=== PATIENT | male | born 1945 | race African-American/Black ===

== ENCOUNTER 2016-11-02 05:16 | Inpatient (IN) | payer OTHER, MEDICARE ==
[~2016-11-02] VITALS: Ht 185.4 cm; Wt 152.2 kg
[2016-11-02] VITALS (27 sets, daily range): BP systolic 85–173; BP diastolic 43–85; PULSE 74–98; RESP 17–22; Ht 185.4 cm; Wt 152.2 kg
[2016-11-02] MEDS ORDERED: LISINOPRIL (06:33)
[2016-11-02] MEDS ORDERED: MIDAZOLAM 1 MG/ML 2 ML INJ ONE (06:37)
[2016-11-02] MEDS ORDERED: LISI20TA11 PO (06:37)
[2016-11-02] MEDS ORDERED: AMLODIPINE (06:37)
[2016-11-02] MEDS ORDERED: ROPIVACAINE 0.5 % 30 ML VIAL ONE ×2 (06:38→06:48)
[2016-11-02 06:46] LABS: BASOPHILS % 0.5 % (0.0-2.0); EOSINOPHILS # 0.3 10^3/ul (0.0-0.5); EOSINOPHILS % 3.6 % (0.0-7.0); HEMATOCRIT 37.4 % (42.0-52.0); HEMOGLOBIN 12.4 g/dl (14.0-18.0); LYMPHOCYTES # 3.4 10^3/ul (0.8-2.9); LYMPHOCYTES % 40.2 % (15.0-51.0); MEAN CORPUSCULAR HEMOGLOBIN 27.9 pg (29.0-33.0); MEAN CORPUSCULAR HGB CONC 33.1 g/dl (32.0-37.0); MEAN CORPUSCULAR VOLUME 84.3 fl (82.0-101.0); MEAN PLATELET VOLUME 7.8 fl (7.4-10.4); MONOCYTE # 0.7 10^3/ul (0.3-0.9); MONOCYTES % 7.9 % (0.0-11.0); NEUTROPHILS % 47.8 % (39.0-77.0); PLATELET COUNT 299 10^3/UL (140-440); RED BLOOD COUNT 4.43 10^6/ul (4.70-6.10); RED CELL DISTRIBUTION WIDTH 15.1 % (11.5-14.5); UNCORRECTED WBC 8.5 10^3/ul (4.8-10.8); WHITE BLOOD COUNT 8.5 10^3/ul (4.8-10.8)
[2016-11-02 06:48] LABS: ALBUMIN 4.1 g/dl (3.3-4.9); INR 1.03; PROTIME 13.5 Sec (12.2-14.2); PT RATIO 1.1
[2016-11-02 06:49] LABS: PARTIAL THROMBOPLASTIN TIME 28.2 Sec (25.0-35.0)
[2016-11-02] MEDS ORDERED: POVIDONE IODINE 10% 28.4 GM OINT ONE (06:49)
[2016-11-02] MEDS ORDERED: POLYMYXIN/BACITRACIN 1L IRRIG ONE (06:49)
[2016-11-02 06:51] LABS: ALBUMIN/GLOBULIN RATIO 1.17; BILIRUBIN,INDIRECT 0.1 mg/dl (0-1.1); BILIRUBIN,TOTAL 0.1 mg/dl (0.2-1.3); CALCIUM 9.8 mg/dl (8.4-10.2); CREATININE 1.28 mg/dl (0.61-1.24); POTASSIUM 4.7 mmol/L (3.5-5.1); TOTAL PROTEIN 7.6 g/dl (6.1-8.1)
[2016-11-02 06:52] LABS: CONDITION 1; LH ANALYZER COMMENTS 1
[2016-11-02] MEDS ORDERED: CEFAZOLIN 1 GM INJ ONE ×2 (07:00→10:27)
[2016-11-02] MEDS ORDERED: PROPOFOL 200 MG INJ ONE (07:00)
[2016-11-02] MEDS ORDERED: FENTAnyl 50 MCG/ML VIAL ONE ×2 (07:05→08:49)
[2016-11-02] MEDS ORDERED: PHENYLephrine (100 MCG/ML) 5ML SYG ONE (07:32)
[2016-11-02] MEDS ORDERED: HYDROmorphONE (0.2 MG/ML) 10ML SYG IV PRN ×3 (08:30)
[2016-11-02] MEDS ORDERED: MEPERIDINE 25 MG INJ IV PRN (08:30)
[2016-11-02] MEDS ORDERED: DIPHENHYDRAMINE 50 MG INJ IV PRN (08:30)
[2016-11-02] MEDS ORDERED: ONDANSETRON 4 MG INJ IV PRN ×2 (08:30→12:00)
[2016-11-02] MEDS ORDERED: FENTAnyl 50 MCG/ML VIAL IV PRN ×2 (08:30)
[2016-11-02] MEDS ORDERED: METOCLOPRAMIDE 10 MG INJ IV PRN (08:30)
[2016-11-02] MEDS ORDERED: LABETALOL HCL 20MG INJ ONE (09:40)
[2016-11-02] MEDS ORDERED: LIDOCAINE 2% (SDV) 5 ML INJ ONE (10:27)
[2016-11-02] MEDS ORDERED: SUCCINYLCHOLINE CHLORIDE 100 MG/5 ML SYG IV ONE (10:27)
[2016-11-02] MEDS ORDERED: ROCURONIUM 50 MG INJ ONE (10:27)
[2016-11-02] MEDS ORDERED: PROPOFOL 60 ML ONE (10:27)
[2016-11-02] MEDS ORDERED: NEOSTIGMINE 3 MG/3 ML SYRINGE ONE (10:59)
[2016-11-02] MEDS ORDERED: GLYCOPYRROLATE 1 MG INJ ONE (10:59)
[2016-11-02] MEDS ORDERED: OXYCODONE/ACETAMINOPHEN (5/325) TAB PO PRN (12:00)
[2016-11-02] MEDS ORDERED: BISACODYL 10 MG SUPP PR PRN (12:00)
[2016-11-02] MEDS ORDERED: CEFAZOLIN 1 GM INJ IV SCH (12:00)
[2016-11-02] MEDS ORDERED: HYDROmorphONE 0.2 MG/ML PCA IV SCH (12:00)
--- NOTE | 2016-11-02 12:07 | RADRPT ---
PROCEDURE: Intraoperative imaging of the left ankle with fluoroscopy. CLINICAL INDICATION: Left ankle pain. Intraoperative. TECHNIQUE: 3 images of the left ankle were obtained in the operating room with an image intensifie r. No radiologist was in attendance. 0.4 minutes of fluoroscopy time was used. COMPARISON: No prior study is available for comparison. FINDINGS: Images demonstrate fusion with multiple screws. IMPRESSION: 1. Intraoperative imaging of the left ankle. RPTAT: QQ .Vladislav Avalos MD, MD Date Time Electronically viewed and signed by .Vladislav Avalos MD, MD on 11/02/2016 12:06 .R/
[2016-11-02] MEDS ORDERED: morphine 1 MG/ML 30 ML (PCA) ONE (12:14)
[2016-11-02] MEDS: morphine 1 MG/ML 30 ML (PCA) IV SCH ×2 (12:21→17:51)
[2016-11-02] MEDS: SOD CHLORIDE 0.9% 1,000 ML IV SCH ×2 (17:11→21:51)
[2016-11-02] MEDS: CEFAZOLIN 2 GM/50 ML (PMX) 50 ML IVPB SCH (17:17)
[2016-11-02] MEDS ORDERED: CEFAZOLIN 1 GM/50 ML (PMX) 50 ML IVPB SCH (18:00)
[2016-11-02] MEDS: morphine 10 MG INJ IV PRN ×2 (19:47→23:18)
[2016-11-02] MEDS: OXYCODONE/ACETAMINOPHEN (5/325) TAB PO PRN (21:00)
[2016-11-02] MEDS: SENNA/DOCUSATE NA (8.6MG/50MG) TAB PO SCH (21:00)
--- NOTE | 2016-11-02 21:02 | CONS ---
DATE OF ADMISSION: 11/02/2016 DATE OF CONSULTATION: Thank you, Dr. Hartman, for asking me to participate in the medical management of this patient. REASON FOR CONSULTATION: To manage the patient's hypertension and diabetes mellitus. HISTORY OF PRESENT ILLNESS: This 70-year-old man is now postop a left ankle fusion by Dr. Hartman. The patient is awake and alert. Apparently, the patient has had left ankle pain for many years sin e he was in the [employer]. He did undergo a surgery on the left ankle at the [facility] the details of that are not well known. The patient, because of continued pain, decided to under go a left ankle fusion, which was done today by Dr. Hartman. The patient said that he did take his a ntihypertensive medication this morning. He denies any nausea, vomiting, chest pain, shortness of b reath. CURRENT MEDICATIONS: Includes the followin. Amlodipine. 2. Lisinopril. PAST MEDICAL HISTORY: Remarkable for hypertension, type 2 diabetes mellitus, which is diet controll ed. Arthritis. PAST SURGICAL HISTORY: Includes the following left ankle surgery, right total knee replacement. SOCIAL HISTORY: The patient is single. He does not smoke. He drinks socially. PHYSICAL EXAMINATION: GENERAL: At this time reveals a well-developed, obese man in no apparent distress. VITAL SIGNS: Pulse of 76, respirations 17, blood pressure 106/56, O2 saturation 99% on 3 L nasal ca nnula. HEENT: Head normocephalic. EYES: Extraocular muscles intact. NOSE AND MOUTH: Normal. NECK: Supple. No neck vein distention. LUNGS: Clear to auscultation. HEART: Regular rhythm. No murmurs, gallops, or rubs. ABDOMEN: Soft, nontender. No masses or megaly. EXTREMITIES: No peripheral edema on the right leg. He does have a large cast on the left leg. IMPRESSION: This patient is now postop a left ankle fusion. He is doing well. His blood pressure is under good control. He did take his routine medications this morning. PLAN: 1. Resume routine medications. 2. I will hold his antihypertensive medication for now in view of his blood pressure on the low nor mal range. 3. I agree with Xarelto 10 mg a day to be started tomorrow for DVT prophylaxis. 4. Check labs in the morning. 5. I will follow the patient along with you. Dictated By: ALEX RUFF MD ND/NTS Conf#: [id number] DID#: [id number] CC: JAI HARTMAN MD;*EndCC*
--- NOTE | 2016-11-02 22:26 | OPR ---
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 POSTOPERATIVE DIAGNOSIS: Severe degenerative joint disease of the left ankle. PROCEDURE: 1. Arthroscopy, left ankle with soft-tissue distraction. 2. Extensive debridement, removal of all osteophytes, loose bodies and arthritic cartilage. 3. Insertion of Ignite and blood to the fusion site. 4. Arthrodesis of the ankle with three 7.3 AO cannulated screws. 5. Use of fluoroscopy to verify position and alignment of the guide pins and screws. 6. Short-leg cast. Extremely complex and difficult procedure because the patient's anatomy was quite altered, the ankle was quite tight and difficult to access anteriorly and posteriorly, and the patient was extremely large with a BMI of almost 45. All this made the procedure extremely difficult technically, necessitating an additional 60 minutes of operative time (22). SURGEON: Jai Pedersen MD PILLOW CLEANER: Cash Jennings ANESTHESIA: General with popliteal block. TOURNIQUET TIME: 165 minutes. DESCRIPTION OF PROCEDURE: The patient taken to the operating room, placed in supine position. Satisfactory popliteal block was given. Satisfactory general anesthesia was administered. Two grams Ancef given intravenously. The left thigh secured in the thigh flannery. Arms were carefully padded. The left leg was prepped and draped in usual manner. Superficial peroneal nerve was marked out. Soft-tissue distraction was applied. Standard anteromedial, anterolateral and posterolateral portals were made. It was very difficult to access the ankle initially because the ankle was very tight and fibrosed, particularly the posterior portal was quite difficult to get into. We had to shave out bone spurs and osteophytes and soft tissue to finally get access to create a posterolateral portal. The ankle had grade III to IV chondromalacia throughout the ankle, was quite sclerotic on the lateral talar dome and distal tibia. Extensive synovitis was noted with large osteophytes anteriorly. Shaver was inserted. The medial gutter was debrided. Soft tissue was peeled off the distal tibia. Lateral gutter was debrided. Anterior gutter was debrided as well as the posterior gutter. Bur was used to remove the osteophytes from the syndesmosis to the medial malleolus. Using curved and straight curettes and a shaver, all articular cartilage was removed from the talus. A bur was used to remove approximately 1 mm of bone to good bleeding surfaces, particularly where it was sclerotic. Multiple "spot welds" were made with the bur to facilitate bleeding on the talus. In a similar manner, the distal tibia was prepared with the curettes and the shaver. All cartilage was removed. Bur was used to remove the bone, and the spot welds were made. Multiple drill holes were made in the tibia and the talus, particularly in the areas of sclerotic bone, to facilitate bleeding as well. A 70-degree scope was used to debride the medial and lateral gutters of all cartilage, and then a bur was used to remove bone along the talus and the medial and lateral malleolus, and then multiple spot welds were made. Same thing was done through the posterior portal so that we accessed the entire joint. When we were done, we had a very good excellent bleeding surface. The Micro Vector guide was inserted. We marked along the previous incisions medially and laterally where we wanted to go. Incisions were then made medially and laterally. Dissection carried down to subcutaneous tissue medially. We elevated up what we thought was the saphenous neurovascular bundle. Guidepin was inserted from the 7.3 AO cannulated screw set in the appropriate angulation on the tibia. Similarly we exposed the fibula, lifted posteriorly the peroneal tendons, placed the guide in the fibular groove and inserted the guide pin. Pins were checked in AP and lateral planes. Once they were exactly where we wanted, Ignite was inserted after being mixed with the patient's blood sterilely. Wounds were closed with 3-0 black nylon to prevent it from leaking out. Foot was then removed out of distraction device, placed in 5 degrees of valgus, neutral dorsiflexion and plantar flexion. The medial guide pin was advanced. It was partially drilled, measured, and then a 7.3 AO cannulated screw was inserted. Excellent fixation was obtained. The same thing was done laterally, partially drilling over the guide pin, measuring the screw length and inserting a screw. Again excellent fixation was obtained. Because the patient was so large, a third pin was placed more superiorly through the medial malleolus into the talus more posteriorly. When we were done , guide pins were removed. The screws were in excellent position in AP and lateral final radiographs, and there was no violation of the subtalar joint on the final fluoroscopic views. Tourniquet was released, bleeders were coagulated , wounds irrigated with antibiotic solution. The deep tissues were closed with 2-0 and 3-0 undyed Vicryl. The skin was closed with 4-0 black nylon. Saphenous nerve block done with 0.5% ropivacaine. Compression dressing was applied as well as short-leg cast in neutral position. Cast was split in recovery room. At end of procedure, sponge, needle count was correct. The patient tolerated procedure well. TRAFFIC CONTROLLER CABLE ORTHOPEDIC SURGEON: During the procedure, an buyer assistant orthopedic surgeon was used at my request. The buyer assistant orthopedic surgeon helped with distraction of the ankle, manipulation of the ankle and the arthroscope, and most importantly, the buyer assistant inserted the guide pins and screws while I held the ankle reduced in appropriate position. Without a skilled orthopedic surgeon assisting me, this could not have been done, therefore should be compensated appropriately. Dictated By: JAI ELIZALDE/BALTAZAR Conf#: [id number] DID#: [id number] GENO
[2016-11-03] MEDS: DIPHENHYDRAMINE 25 MG CAP PO PRN ×2 (00:11→08:03)
[2016-11-03] MEDS: OXYCODONE/ACETAMINOPHEN (5/325) TAB PO PRN ×5 (01:41→20:12)
[2016-11-03] MEDS: CEFAZOLIN 2 GM/50 ML (PMX) 50 ML IVPB SCH ×3 (02:09→18:20)
[2016-11-03] MEDS: morphine 10 MG INJ IV PRN ×4 (04:56→16:56)
[2016-11-03 06:34] LABS: ALBUMIN 4.4 g/dl (3.3-4.9)
[2016-11-03 06:35] LABS: BASOPHILS % 0.4 % (0.0-2.0); EOSINOPHILS # 0.2 10^3/ul (0.0-0.5); EOSINOPHILS % 1.7 % (0.0-7.0); HEMATOCRIT 39.6 % (42.0-52.0); HEMOGLOBIN 13.1 g/dl (14.0-18.0); LYMPHOCYTES % 26.6 % (15.0-51.0); MEAN CORPUSCULAR HEMOGLOBIN 27.9 pg (29.0-33.0); MEAN CORPUSCULAR VOLUME 84.7 fl (82.0-101.0); MEAN PLATELET VOLUME 8.5 fl (7.4-10.4); MONOCYTE # 0.7 10^3/ul (0.3-0.9); MONOCYTES % 6.2 % (0.0-11.0); NEUTROPHIL # 7.3 10^3/ul (1.6-7.5); NEUTROPHILS % 65.1 % (39.0-77.0); PLATELET COUNT 250 10^3/UL (140-440); POTASSIUM 4.9 mmol/L (3.5-5.1); RED BLOOD COUNT 4.68 10^6/ul (4.70-6.10); RED CELL DISTRIBUTION WIDTH 14.7 % (11.5-14.5); UNCORRECTED WBC 11.3 10^3/ul (4.8-10.8); WHITE BLOOD COUNT 11.3 10^3/ul (4.8-10.8)
[2016-11-03 06:37] LABS: ALBUMIN/GLOBULIN RATIO 1.12; BILIRUBIN,INDIRECT 0.3 mg/dl (0-1.1); BILIRUBIN,TOTAL 0.3 mg/dl (0.2-1.3); CREATININE 1.52 mg/dl (0.61-1.24); TOTAL PROTEIN 8.3 g/dl (6.1-8.1)
[2016-11-03 06:38] LABS: CALCIUM 9.9 mg/dl (8.4-10.2)
[2016-11-03] MEDS: SOD CHLORIDE 0.9% 1,000 ML IV SCH (06:44)
[2016-11-03 06:47] LABS: CONDITION 1; LH ANALYZER COMMENTS 1
--- NOTE | 2016-11-03 07:17 | PN ---
Date/Time of Note Date/Time of Note DATE: 11/03/16 TIME: 07:13 Assessment/Plan VTE Prophylaxis VTE Prophylaxis Intervention: anti-embolic stocking, other Lines/Catheters IV Catheter Type (from Nrs): Peripheral IV Assessment/Plan Chief Complaint/Hosp Course #1 POD1 s/p Left arthroscopic ankle fusion #2 HTN #3 DM2 Diet Controlled Problems: Assessment/Plan Doing well. -Social work to see for SNF placement - PT to mobilize, NWB LLE, will be complicated by habitus and other joint problems - NWB LLE, - Elevate leg at all times. - Will determine when to change soiled cast - Xarelto for DVT prophylaxis - Appreciate excellent care from our medicine colleagues Subjective 24 Hr Interval Summary Free Text/Dictation Pt has done very well overnight. He is POD 1 from arthroscopic left ankle fusion. Denies problems overnight. He is in good spirits. Notes he has bled through his cast in one location. No CP,SOB. Exam/Review of Systems Vital Signs Vitals Vital Signs Date Time Temp Pulse Resp B/P Pulse Ox O2 Delivery O2 Flow Rate FiO2 11/02/16 20:10 94 2.0 11/02/16 20:00 98.6 86 18 137/69 11/02/16 15:15 Room Air Intake and Output 11/02/16 11/02/16 11/03/16 15:00 23:00 07:00 Intake Total 1200 ml 1250 ml 950 ml Output Total 50 ml 1100 ml 1000 ml Balance 1150 ml 150 ml -50 ml Exam Left foot warm and well perfused with normal capillary refill. Left cast has bleeding strike through present. Patient is in good spirits, endorses normal dorsal and plantar sensation and is moving toes easily to command. Contralateral leg is nontender. Constitutional: alert, oriented Extremities: normal pulses Results Result Diagram: 11/03/163 11/03/16 0443 Results 24 hrs Laboratory Tests Test 11/03/16 04:43 Alanine Aminotransferase (ALT/SGPT) 55 Albumin 4.4 Albumin/Globulin Ratio 1.12 Alkaline Phosphatase 63 Anion Gap 20 H Aspartate Amino Transf (AST/SGOT) 45 Basophils # 0.0 Basophils % 0.4 Blood Morphology Comment Blood Urea Nitrogen 18 Calcium Level 9.9 Carbon Dioxide Level 27 Chloride Level 103 Creatinine 1.52 H Direct Bilirubin 0.00 Eosinophils # 0.2 Eosinophils % 1.7 Globulin 3.90 H Glucose Level 134 Hematocrit 39.6 L Hemoglobin 13.1 L Indirect Bilirubin 0.3 Lymphocytes # 3.0 H Lymphocytes % 26.6 Mean Corpuscular Hemoglobin 27.9 L Mean Corpuscular Hemoglobin Concent 33.0 Mean Corpuscular Volume 84.7 Mean Platelet Volume 8.5 Monocytes # 0.7 Monocytes % 6.2 Neutrophils # 7.3 Neutrophils % 65.1 Nucleated Red Blood Cells # 0.0 Nucleated Red Blood Cells % 0.0 Platelet Count 250 Potassium Level 4.9 Red Blood Count 4.68 L Red Cell Distribution Width 14.7 H Sodium Level 145 H Total Bilirubin 0.3 Total Protein 8.3 H White Blood Count 11.3 #H Medications Medications Current Medications Senna/Docusate Sodium (Senokot-S) 1 tab BID PO Last administered on 11/02/16 21 :00; Admin Dose 1 TAB; Start 11/02/16 at 21:00 Magnesium Hydroxide (Milk Of Mag) 30 ml HS PO ; Start 11/04/16 at 21:00 Bisacodyl 10 mg 10 mg DAILY PRN [place] CONSTIPATION; Start 11/02/16 at 12:00 Sodium Chloride (NS) 1,000 ml @ 100 mls/hr Q10H IV Last administered on 06:44; Admin Dose 100 MLS/HR; Start 11/02/16 at 11:51 Oxycodone/ Acetaminophen (Percocet (5/ 325)) 1 tab Q4H PRN PO PAIN; Start at 12:00 Oxycodone/ Acetaminophen (Percocet (5/ 325)) 2 tab Q4H PRN PO PAIN Last administered on 11/03/16 06:44; Admin Dose 2 TAB; Start 11/02/16 at 12:00 Morphine Sulfate (morphine) 5 mg Q4H PRN IV PAIN LEVEL 7-10 Last administered on 11/03/16 04:56; Admin Dose 5 MG; Start 11/02/16 at 12:00 Ondansetron HCl (Zofran Inj) 4 mg Q4H PRN IV NAUSEA AND/OR VOMITING; Start 11/02 at 12:00 Diphenhydramine HCl 25 mg 25 mg Q4H PRN PO ITCHING Last administered on 00:11; Admin Dose 25 MG; Start 11/02/16 at 12:00 Cefazolin Sodium/ Dextrose (Ancef 2 Gm/50 ml (Pmx)) 50 ml @ 100 mls/hr Q8H IVPB Last administered on 11/03/16 02:09; Admin Dose 100 MLS/HR; Start at 18:00; Stop 11/04/16 at 10:29 JAI HARTMAN MD Nov 03, 2016 07:17
[2016-11-03] MEDS: SENNA/DOCUSATE NA (8.6MG/50MG) TAB PO SCH ×2 (08:03→20:12)
[2016-11-03 08:44] VITALS: BP 136/72; RESP 18
--- NOTE | 2016-11-03 13:55 | CONS ---
Date/Time of Note Date/Time of Note DATE: 11/03/16 TIME: 13:48 Assessment/Plan Assessment/Plan Chief Complaint/Hosp Course 1. he is 1 day post op a L ankle fusion .He is better today , with less pain . He is working with PT . 2. HTN BP is under control 3. Renal Disease , I suspect that he has CKD . I will order U/A and urine protein /creatinine ratio . Problems: Consultation Date/Type/Reason Admit Date/Time Nov 02, 2016 at 05:16 Initial Consult Date 24 HR Interval Summary Constitutional: improved, no complaints Exam/Review of Systems Vital Signs Vitals Vital Signs Date Time Temp Pulse Resp B/P Pulse Ox O2 Delivery O2 Flow Rate FiO2 11/03/16 08:44 98.6 77 18 136/72 90 11/02/16 20:10 2.0 11/02/16 15:15 Room Air Intake and Output 11/02/16 11/02/16 11/03/16 15:00 23:00 07:00 Intake Total 1200 ml 1250 ml 950 ml Output Total 50 ml 1100 ml 1000 ml Balance 1150 ml 150 ml -50 ml Exam He is having less pain today . He is working with PT .He has a large cast on his L lower leg Constitutional: alert, oriented, well developed Psych: nl mood/affect, no complaints Respiratory: clear to auscultation, normal air movement Cardiovascular: nl pulses, regular rate and rhythm Musculoskeletal: nl extremities to inspection Results Result Diagram: 11/03/16 0443 11/03/16 0443 Results 24 hrs Laboratory Tests Test 11/03/16 04:43 Alanine Aminotransferase (ALT/SGPT) 55 Albumin 4.4 Albumin/Globulin Ratio 1.12 Alkaline Phosphatase 63 Anion Gap 20 H Aspartate Amino Transf (AST/SGOT) 45 Basophils # 0.0 Basophils % 0.4 Blood Morphology Comment Blood Urea Nitrogen 18 Calcium Level 9.9 Carbon Dioxide Level 27 Chloride Level 103 Creatinine 1.52 H Direct Bilirubin 0.00 Eosinophils # 0.2 Eosinophils % 1.7 Globulin 3.90 H Glucose Level 134 Hematocrit 39.6 L Hemoglobin 13.1 L Indirect Bilirubin 0.3 Lymphocytes # 3.0 H Lymphocytes % 26.6 Mean Corpuscular Hemoglobin 27.9 L Mean Corpuscular Hemoglobin Concent 33.0 Mean Corpuscular Volume 84.7 Mean Platelet Volume 8.5 Monocytes # 0.7 Monocytes % 6.2 Neutrophils # 7.3 Neutrophils % 65.1 Nucleated Red Blood Cells # 0.0 Nucleated Red Blood Cells % 0.0 Platelet Count 250 Potassium Level 4.9 Red Blood Count 4.68 L Red Cell Distribution Width 14.7 H Sodium Level 145 H Total Bilirubin 0.3 Total Protein 8.3 H White Blood Count 11.3 #H Medications Medications Current Medications Senna/Docusate Sodium (Senokot-S) 1 tab BID PO Last administered on 11/03/16 08:03; Admin Dose 1 TAB; Start 11/02/16 at 21:00 Magnesium Hydroxide (Milk Of Mag) 30 ml HS PO ; Start 11/04/16 at 21:00 Bisacodyl 10 mg 10 mg DAILY PRN [place] CONSTIPATION; Start 11/02/16 at 12:00 Sodium Chloride (NS) 1,000 ml @ 100 mls/hr Q10H IV Last administered on 06:44; Admin Dose 100 MLS/HR; Start 11/02/16 at 11:51 Oxycodone/ Acetaminophen (Percocet (5/ 325)) 1 tab Q4H PRN PO PAIN; Start at 12:00 Oxycodone/ Acetaminophen (Percocet (5/ 325)) 2 tab Q4H PRN PO PAIN Last administered on 11/03/16 11:15; Admin Dose 2 TAB; Start 11/02/16 at 12:00 Morphine Sulfate (morphine) 5 mg Q4H PRN IV PAIN LEVEL 7-10 Last administered on 11/03/16 13:07; Admin Dose 5 MG; Start 11/02/16 at 12:00 Ondansetron HCl (Zofran Inj) 4 mg Q4H PRN IV NAUSEA AND/OR VOMITING; Start 11/02 at 12:00 Diphenhydramine HCl 25 mg 25 mg Q4H PRN PO ITCHING Last administered on 08:03; Admin Dose 25 MG; Start 11/02/16 at 12:00 Cefazolin Sodium/ Dextrose (Ancef 2 Gm/50 ml (Pmx)) 50 ml @ 100 mls/hr Q8H IVPB Last administered on 11/03/16 11:14; Admin Dose 100 MLS/HR; Start at 18:00; Stop 11/04/16 at 10:29 Amlodipine Besylate (Norvasc) 5 mg DAILY PO ; Start 11/03/16 at 14:00 ALEX RUFF MD Nov 03, 2016 13:55
[2016-11-03] MEDS: AMLODIPINE 5 MG TAB PO SCH (14:39)
[2016-11-03] MEDS: RIVAROXABAN 10 MG TABLET PO SCH (18:20)
[2016-11-03 21:08] VITALS: BP 170/85; RESP 20
[2016-11-03 21:57] VITALS: BP 150/86; RESP 17
[2016-11-04] MEDS: CEFAZOLIN 2 GM/50 ML (PMX) 50 ML IVPB SCH (01:45)
[2016-11-04] MEDS: morphine 10 MG INJ IV PRN (01:56)
[2016-11-04 02:47] LABS: ADD UMIC NO; URINE BILIRUBIN (Dip) NEGATIVE (NEGATIVE); URINE BLOOD (Dip) NEGATIVE (NEGATIVE); URINE COLOR LT. YELLOW (YELLOW); URINE GLUCOSE (Dip) NEGATIVE (NEGATIVE); URINE KETONES (Dip) NEGATIVE (NEGATIVE); URINE LEUKOCYTE ESTERASE (Dip) NEGATIVE (NEGATIVE); URINE NITRITE (Dip) NEGATIVE (NEGATIVE); URINE TOTAL PROTEIN (Dip) NEGATIVE (NEGATIVE); URINE UROBILINOGEN (Dip) 0.2 E.U./dL (0.1-1.0)
[2016-11-04] MEDS: OXYCODONE/ACETAMINOPHEN (5/325) TAB PO PRN ×3 (02:55→19:38)
[2016-11-04 05:31] LABS: BASOPHILS % 0.3 % (0.0-2.0); EOSINOPHILS # 0.2 10^3/ul (0.0-0.5); HEMATOCRIT 35.9 % (42.0-52.0); HEMOGLOBIN 11.9 g/dl (14.0-18.0); LYMPHOCYTES # 2.2 10^3/ul (0.8-2.9); LYMPHOCYTES % 22.1 % (15.0-51.0); MEAN CORPUSCULAR HEMOGLOBIN 27.7 pg (29.0-33.0); MEAN CORPUSCULAR VOLUME 83.8 fl (82.0-101.0); MEAN PLATELET VOLUME 8.1 fl (7.4-10.4); MONOCYTE # 0.8 10^3/ul (0.3-0.9); MONOCYTES % 7.6 % (0.0-11.0); NEUTROPHIL # 6.7 10^3/ul (1.6-7.5); PLATELET COUNT 270 10^3/UL (140-440); RED BLOOD COUNT 4.29 10^6/ul (4.70-6.10); RED CELL DISTRIBUTION WIDTH 14.3 % (11.5-14.5); UNCORRECTED WBC 9.8 10^3/ul (4.8-10.8); WHITE BLOOD COUNT 9.8 10^3/ul (4.8-10.8)
[2016-11-04 05:33] LABS: ALBUMIN 3.9 g/dl (3.3-4.9); POTASSIUM 4.6 mmol/L (3.5-5.1)
[2016-11-04 05:35] LABS: CONDITION 1; CREATININE 1.22 mg/dl (0.61-1.24)
[2016-11-04 05:36] LABS: ALBUMIN/GLOBULIN RATIO 1.05; BILIRUBIN,INDIRECT 0.2 mg/dl (0-1.1); BILIRUBIN,TOTAL 0.2 mg/dl (0.2-1.3); TOTAL PROTEIN 7.6 g/dl (6.1-8.1)
--- NOTE | 2016-11-04 06:38 | PN ---
Date/Time of Note Date/Time of Note DATE: 11/04/16 TIME: 06:35 Assessment/Plan VTE Prophylaxis VTE Prophylaxis Intervention: anti-embolic stocking Lines/Catheters IV Catheter Type (from Nrs): Peripheral IV Urinary Cath still in place: No Assessment/Plan Chief Complaint/Hosp Course #1 POD2 s/p Left arthroscopic ankle fusion #2 HTN #3 DM2 Diet Controlled Problems: Assessment/Plan - Convert to Oral pain medication and abx - No need for IV - Can tx to rehab unit once accepted. - Xarelto for DVT Prophy - NWB LLE Subjective 24 Hr Interval Summary Free Text/Dictation Pt has done well overnight. No issues. His IV has infiltrated and he is a difficult stick. He's having tolerable pain in the foot currently. He otherwise feels well. Constitutional: improved, no complaints Cardiovascular: no complaints Exam/Review of Systems Vital Signs Vitals Vital Signs Date Time Temp Pulse Resp B/P Pulse Ox O2 Delivery O2 Flow Rate FiO2 11/03/16 21:57 17 150/86 11/03/16 21:08 98.3 91 97 11/03/16 20:00 Nasal Cannula 2.0 Intake and Output 11/03/16 11/03/16 11/04/16 15:00 23:00 07:00 Intake Total 3050 ml 630 ml Output Total 2200 ml 1300 ml Balance 850 ml -670 ml Exam Cast in place. Strikethrough stable. Toes warm and well perfused, wiggles toes in dorsi and plantar well. Constitutional: alert, oriented, well developed Psych: no complaints Cardiovascular: nl pulses Extremities: normal pulses, No calf tenderness Results Result Diagram: 11/04/16 0444 11/04/16 0444 Results 24 hrs Laboratory Tests Test 11/04/16 01:10 11/04/16 04:44 Urine Bilirubin NEGATIVE Urine Clarity CLEAR Urine Color LT. YELLOW Urine Glucose NEGATIVE Urine Hemoglobin NEGATIVE Urine Ketones NEGATIVE Urine Leukocyte Esterase NEGATIVE Urine Nitrite NEGATIVE Urine Protein/Creatinine Ratio Urine Random Creatinine 93.96 Urine Specific [place] 1.025 Urine Total Protein Urine Urobilinogen 0.2 E.U./dL Urine pH 5.5 Alanine Aminotransferase (ALT/SGPT) 40 Albumin 3.9 Albumin/Globulin Ratio 1.05 Alkaline Phosphatase 55 Anion Gap Pending Aspartate Amino Transf (AST/SGOT) 32 Basophils # 0.0 Basophils % 0.3 Blood Morphology Comment Blood Urea Nitrogen 13 Calcium Level 10.0 Carbon Dioxide Level Pending Chloride Level 101 Creatinine 1.22 Direct Bilirubin 0.00 Eosinophils # 0.2 Eosinophils % 2.0 Globulin 3.70 H Glucose Level 126 Hematocrit 35.9 L Hemoglobin 11.9 L Indirect Bilirubin 0.2 Lymphocytes # 2.2 Lymphocytes % 22.1 Mean Corpuscular Hemoglobin 27.7 L Mean Corpuscular Hemoglobin Concent 33.0 Mean Corpuscular Volume 83.8 Mean Platelet Volume 8.1 Monocytes # 0.8 Monocytes % 7.6 Neutrophils # 6.7 Neutrophils % 68.0 Nucleated Red Blood Cells # 0.0 Nucleated Red Blood Cells % 0.0 Platelet Count 270 Potassium Level 4.6 Red Blood Count 4.29 L Red Cell Distribution Width 14.3 Sodium Level 140 Total Bilirubin 0.2 Total Protein 7.6 White Blood Count 9.8 Medications Medications Current Medications Senna/Docusate Sodium (Senokot-S) 1 tab BID PO Last administered on 11/03/16 20:12; Admin Dose 1 TAB; Start 11/02/16 at 21:00 Magnesium Hydroxide (Milk Of Mag) 30 ml HS PO ; Start 11/04/16 at 21:00 Bisacodyl (Dulcolax Supp) 10 mg DAILY PRN [place] CONSTIPATION; Start 11/02/16 at 12: 00 Oxycodone/ Acetaminophen (Percocet (5/ 325)) 1 tab Q4H PRN PO PAIN; Start at 12:00 Oxycodone/ Acetaminophen (Percocet (5/ 325)) 2 tab Q4H PRN PO PAIN Last administered on 11/04/16 02:55; Admin Dose 2 TAB; Start 11/02/16 at 12:00 Morphine Sulfate (morphine) 5 mg Q4H PRN IV PAIN LEVEL 7-10 Last administered on 11/03/16 16:56; Admin Dose 5 MG; Start 11/02/16 at 12:00 Ondansetron HCl (Zofran Inj) 4 mg Q4H PRN IV NAUSEA AND/OR VOMITING; Start 11/02 at 12:00 Diphenhydramine HCl 25 mg 25 mg Q4H PRN PO ITCHING Last administered on 08:03; Admin Dose 25 MG; Start 11/02/16 at 12:00 Cefazolin Sodium/ Dextrose (Ancef 2 Gm/50 ml (Pmx)) 50 ml @ 100 mls/hr Q8H IVPB Last administered on 11/04/16 01:45; Admin Dose 100 MLS/HR; Start at 18:00; Stop 11/04/16 at 10:29 Amlodipine Besylate (Norvasc) 5 mg DAILY PO Last administered on 11/03/16 14: 39; Admin Dose 5 MG; Start 11/03/16 at 14:00 JAI HARTMAN MD Nov 04, 2016 06:38
[2016-11-04 08:30] VITALS: BP 165/85; PULSE 78
[2016-11-04] MEDS: AMLODIPINE 5 MG TAB PO SCH (09:05)
[2016-11-04] MEDS: SENNA/DOCUSATE NA (8.6MG/50MG) TAB PO SCH ×2 (09:05→20:46)
[2016-11-04] MEDS: CEPHALEXIN 500 MG CAP PO SCH ×4 (09:05→23:28)
[2016-11-04 11:00] VITALS: BP 141/78; PULSE 82
[2016-11-04] MEDS: HYDROmorphONE 1 MG/ML SYG IM PRN ×2 (11:17→15:19)
--- NOTE | 2016-11-04 13:05 | CONS ---
Date/Time of Note Date/Time of Note DATE: 11/04/16 TIME: 12:55 Assessment/Plan Assessment/Plan Chief Complaint/Hosp Course 1. he is 2 days post op a L ankle fusion .He is still having pain in L ankle . He is working with PT . 2. HTN ,BP is coming under control 3. his renal function is back to normal . Problems: Consultation Date/Type/Reason Admit Date/Time Nov 02, 2016 at 05:16 24 HR Interval Summary Free Text/Dictation He is 2 days post op L ankle fusion . He is still having pain in his L ankle . Exam/Review of Systems Vital Signs Vitals Vital Signs Date Time Temp Pulse Resp B/P Pulse Ox O2 Delivery O2 Flow Rate FiO2 11/04/16 08:30 98.0 78 165/85 11/03/16 21:57 17 11/03/16 21:08 97 11/03/16 20:00 Nasal Cannula 2.0 Intake and Output 11/03/16 11/03/16 11/04/16 15:00 23:00 07:00 Intake Total 3050 ml 630 ml Output Total 2200 ml 1300 ml Balance 850 ml -670 ml Exam he has a large cast on L ankle . Constitutional: alert, oriented, well developed Respiratory: clear to auscultation, normal air movement Cardiovascular: regular rate and rhythm Results Result Diagram: 11/04/16 0444 11/04/16 0444 Results 24 hrs Laboratory Tests Test 11/04/16 01:10 11/04/16 04:44 Urine Bilirubin NEGATIVE Urine Clarity CLEAR Urine Color LT. YELLOW Urine Glucose NEGATIVE Urine Hemoglobin NEGATIVE Urine Ketones NEGATIVE Urine Leukocyte Esterase NEGATIVE Urine Nitrite NEGATIVE Urine Protein/Creatinine Ratio Urine Random Creatinine 93.96 Urine Specific [place] 1.025 Urine Total Protein Urine Urobilinogen 0.2 E.U./dL Urine pH 5.5 Alanine Aminotransferase (ALT/SGPT) 40 Albumin 3.9 Albumin/Globulin Ratio 1.05 Alkaline Phosphatase 55 Anion Gap 19 H Aspartate Amino Transf (AST/SGOT) 32 Basophils # 0.0 Basophils % 0.3 Blood Morphology Comment Blood Urea Nitrogen 13 Calcium Level 10.0 Carbon Dioxide Level 25 Chloride Level 101 Creatinine 1.22 Direct Bilirubin 0.00 Eosinophils # 0.2 Eosinophils % 2.0 Globulin 3.70 H Glucose Level 126 Hematocrit 35.9 L Hemoglobin 11.9 L Indirect Bilirubin 0.2 Lymphocytes # 2.2 Lymphocytes % 22.1 Mean Corpuscular Hemoglobin 27.7 L Mean Corpuscular Hemoglobin Concent 33.0 Mean Corpuscular Volume 83.8 Mean Platelet Volume 8.1 Monocytes # 0.8 Monocytes % 7.6 Neutrophils # 6.7 Neutrophils % 68.0 Nucleated Red Blood Cells # 0.0 Nucleated Red Blood Cells % 0.0 Platelet Count 270 Potassium Level 4.6 Red Blood Count 4.29 L Red Cell Distribution Width 14.3 Sodium Level 140 Total Bilirubin 0.2 Total Protein 7.6 White Blood Count 9.8 Medications Medications Current Medications Senna/Docusate Sodium (Senokot-S) 1 tab BID PO Last administered on 11/04/16 09:05; Admin Dose 1 TAB; Start 11/02/16 at 21:00 Magnesium Hydroxide (Milk Of Mag) 30 ml HS PO ; Start 11/04/16 at 21:00 Bisacodyl (Dulcolax Supp) 10 mg DAILY PRN [place] CONSTIPATION; Start 11/02/16 at 12: 00 Oxycodone/ Acetaminophen (Percocet (5/ 325)) 1 tab Q4H PRN PO PAIN; Start at 12:00 Oxycodone/ Acetaminophen (Percocet (5/ 325)) 2 tab Q4H PRN PO PAIN Last administered on 11/04/16 09:10; Admin Dose 2 TAB; Start 11/02/16 at 12:00 Morphine Sulfate (morphine) 5 mg Q4H PRN IV PAIN LEVEL 7-10 Last administered on 11/03/16 16:56; Admin Dose 5 MG; Start 11/02/16 at 12:00 Ondansetron HCl (Zofran Inj) 4 mg Q4H PRN IV NAUSEA AND/OR VOMITING; Start 11/02 at 12:00 Diphenhydramine HCl (Benadryl) 25 mg Q4H PRN PO ITCHING Last administered on 08:03; Admin Dose 25 MG; Start 11/02/16 at 12:00 Amlodipine Besylate (Norvasc) 5 mg DAILY PO Last administered on 11/04/16 09: 05; Admin Dose 5 MG; Start 11/03/16 at 14:00 Cephalexin (Keflex) 500 mg Q6 PO Last administered on 11/04/16 11:17; Admin Dose 500 MG; Start 11/04/16 at 07:00 Hydromorphone HCl (Dilaudid) 1 mg Q4 PRN IM SEVERE PAIN LEVEL 7-10 Last administered on 11/04/16 11:17; Admin Dose 1 MG; Start 11/04/16 at 11:30 ALEX RUFF MD Nov 04, 2016 13:05
[2016-11-04] MEDS: LISINOPRIL 10 MG TAB PO SCH (13:37)
[2016-11-04] MEDS: HYDROmorphONE 2 MG/ML SYG IM PRN ×2 (17:04→22:30)
[2016-11-04] MEDS: RIVAROXABAN 10 MG TABLET PO SCH (17:06)
[2016-11-04 20:00] VITALS: BP 159/88; RESP 19
[2016-11-04] MEDS: MAGNESIUM HYDROXIDE 30ML CUP PO SCH (20:46)
[2016-11-05] MEDS: OXYCODONE/ACETAMINOPHEN (5/325) TAB PO PRN ×3 (00:44→20:13)
[2016-11-05] MEDS: HYDROmorphONE 2 MG/ML SYG IM PRN ×5 (04:17→21:31)
[2016-11-05] MEDS: CEPHALEXIN 500 MG CAP PO SCH ×3 (04:58→17:24)
--- NOTE | 2016-11-05 07:30 | PN ---
Date/Time of Note Date/Time of Note DATE: 11/05/16 TIME: 07:26 Assessment/Plan VTE Prophylaxis VTE Prophylaxis Intervention: anti-embolic stocking, other Lines/Catheters IV Catheter Type (from Nrsg): Peripheral IV Urinary Cath still in place: No Assessment/Plan Chief Complaint/Hosp Course #1 POD3 s/p Left arthroscopic ankle fusion #2 HTN #3 DM2 Diet Controlled Problems: Assessment/Plan -Doing well -[facility] -Continue Xarelto for DVT prophy -Wean to oral narcotics, OK to increase oral dose to wean from IV Dilaudid if needed -NWB RLE Subjective 24 Hr Interval Summary Free Text/Dictation Pt. doing well over last 24 hours. No complaints currently. Pain better controlled with increased dose of Dilaudid. Cast strikethrough stable. Constitutional: no complaints Cardiovascular: no complaints Musculoskeletal: no complaints Exam/Review of Systems Vital Signs Vitals Vital Signs Date Time Temp Pulse Resp B/P Pulse Ox O2 Delivery O2 Flow Rate FiO2 11/04/16 20:00 98.3 76 19 159/88 96 11/04/16 20:00 Nasal Cannula 2.0 Intake and Output 11/04/16 11/04/16 11/05/16 15:00 23:00 07:00 Intake Total 1020 ml 720 ml Output Total 900 ml 1000 ml Balance 120 ml -280 ml Exam Foot warm and well perfused on right side. Easily moving toes with minimal pain. Strikethrough is stable on cast. Results Result Diagram: 11/04/16 0444 11/04/16 0444 Medications Medications Current Medications Senna/Docusate Sodium (Senokot-S) 1 tab BID PO Last administered on 11/04/16 20:46; Admin Dose 1 TAB; Start 11/02/16 at 21:00 Magnesium Hydroxide (Milk Of Mag) 30 ml HS PO ; Start 11/04/16 at 21:00 Bisacodyl (Dulcolax Supp) 10 mg DAILY PRN [place] CONSTIPATION; Start 11/02/16 at 12: 00 Oxycodone/ Acetaminophen (Percocet (5/ 325)) 1 tab Q4H PRN PO PAIN; Start at 12:00 Oxycodone/ Acetaminophen (Percocet (5/ 325)) 2 tab Q4H PRN PO PAIN Last administered on 11/05/16 00:44; Admin Dose 2 TAB; Start 11/02/16 at 12:00 Morphine Sulfate (morphine) 5 mg Q4H PRN IV PAIN LEVEL 7-10 Last administered on 11/03/16 16:56; Admin Dose 5 MG; Start 11/02/16 at 12:00 Ondansetron HCl (Zofran Inj) 4 mg Q4H PRN IV NAUSEA AND/OR VOMITING; Start 11/02 at 12:00 Diphenhydramine HCl (Benadryl) 25 mg Q4H PRN PO ITCHING Last administered on 08:03; Admin Dose 25 MG; Start 11/02/16 at 12:00 Amlodipine Besylate (Norvasc) 5 mg DAILY PO Last administered on 11/04/16 09: 05; Admin Dose 5 MG; Start 11/03/16 at 14:00 Cephalexin (Keflex) 500 mg Q6 PO Last administered on 11/05/16 04:58; Admin Dose 500 MG; Start 11/04/16 at 07:00 Lisinopril (Zestril) 10 mg DAILY PO Last administered on 11/04/16 13:37; Admin Dose 10 MG; Start 11/04/16 at 13:30 Hydromorphone HCl (Dilaudid) 2 mg Q4 PRN IM SEVERE PAIN LEVEL 7-10 Last administered on 11/05/16 04:17; Admin Dose 2 MG; Start 11/04/16 at 17:00 JAI HARTMAN MD Nov 05, 2016 07:29
[2016-11-05 07:33] VITALS: BP 185/88; RESP 18
[2016-11-05] MEDS: SENNA/DOCUSATE NA (8.6MG/50MG) TAB PO SCH ×2 (08:42→20:13)
[2016-11-05] MEDS: AMLODIPINE 5 MG TAB PO SCH (08:42)
[2016-11-05] MEDS: LISINOPRIL 10 MG TAB PO SCH (08:43)
--- NOTE | 2016-11-05 09:35 | DS ---
DATE OF ADMISSION: 11/02/2016 DATE OF DISCHARGE: 11/02/2016 DISCHARGE DIAGNOSIS: Severe degenerative arthritis of the left ankle. OPERATION PERFORMED: Surgery on 11/02/2016 was arthroscopy of the left ankle with debridement, inse rtion of Ignite and blood and arthrodesis with 3 screws, left ankle. HISTORY OF PRESENT ILLNESS: The patient is a 70-year-old male with a long history of severe pain in his left ankle. He is in a wheelchair, can't walk, admitted now for surgery. PAST MEDICAL HISTORY: See the history and physical record. PHYSICAL EXAMINATION: Normal except the orthopedic exam which revealed severe pain and decreased mo tion in the left ankle. Laboratory was normal. Chest x-ray was clear. EKG was normal. HOSPITAL COURSE: The patient was taken to the operating room, underwent above-mentioned procedure. Postoperatively, he was up ambulating the first postoperative day, nonweightbearing. He was able t o be transferred to the rehabilitation unit for further care. The patient will continue on his pain medication and finish his antibiotics. We will follow him closely. Dictated By: JAI ELIZALDE/BALTAZAR Conf#: [id number] DID#: [id number]
[2016-11-05] MEDS ORDERED: AMLODIPINE 5 MG TAB PO ONE (14:00)
--- NOTE | 2016-11-05 14:03 | CONS ---
Date/Time of Note Date/Time of Note DATE: 11/05/16 TIME: 13:59 Assessment/Plan Assessment/Plan Chief Complaint/Hosp Course 1. he is 3 days post op a L ankle fusion .He is having less pain in his left ankle. He says that the pain medication is controlling his pain.. 2. HTN ,BP is higher today. I will increase amlodipine. 3. his renal function is back to normal . 4. He is trying to determine whether she will go to the acute rehabilitation unit here in the hospital or to an outside rehabilitation unit. He will speak to the child welfare caseworker about this. Problems: Consultation Date/Type/Reason Admit Date/Time Nov 02, 2016 at 05:16 24 HR Interval Summary Free Text/Dictation He is having less pain. He says that he is able to control his pain with his current medications. He will talk to the child welfare caseworker about where he goes from here. He is debating whether to go to the acute rehabilitation unit here in the hospital order to an outside rehabilitation unit. Exam/Review of Systems Vital Signs Vitals Vital Signs Date Time Temp Pulse Resp B/P Pulse Ox O2 Delivery O2 Flow Rate FiO2 11/05/16 07:33 98.0 70 18 185/88 99 11/05/16 07:30 Nasal Cannula 2.0 Intake and Output 11/04/16 11/04/16 11/05/16 15:00 23:00 07:00 Intake Total 1020 ml 720 ml Output Total 900 ml 1000 ml Balance 120 ml -280 ml Exam Constitutional: alert, oriented, well developed Psych: nl mood/affect, no complaints Respiratory: clear to auscultation, normal air movement Cardiovascular: nl pulses, regular rate and rhythm Musculoskeletal: nl extremities to inspection Results Result Diagram: 11/04/16 0444 11/04/16 0444 Medications Medications Current Medications Senna/Docusate Sodium (Senokot-S) 1 tab BID PO Last administered on 11/05/16t 08:42; Admin Dose 1 TAB; Start 11/02/16 at 21:00 Magnesium Hydroxide (Milk Of Mag) 30 ml HS PO ; Start 11/04/16 at 21:00 Bisacodyl (Dulcolax Supp) 10 mg DAILY PRN [place] CONSTIPATION; Start 11/02/16 at 12: 00 Oxycodone/ Acetaminophen (Percocet (5/ 325)) 1 tab Q4H PRN PO PAIN; Start at 12:00 Oxycodone/ Acetaminophen (Percocet (5/ 325)) 2 tab Q4H PRN PO PAIN Last administered on 11/05/16 00:44; Admin Dose 2 TAB; Start 11/02/16 at 12:00 Morphine Sulfate (morphine) 5 mg Q4H PRN IV PAIN LEVEL 7-10 Last administered on 11/03/16 16:56; Admin Dose 5 MG; Start 11/02/16 at 12:00 Ondansetron HCl (Zofran Inj) 4 mg Q4H PRN IV NAUSEA AND/OR VOMITING; Start 11/02 at 12:00 Diphenhydramine HCl (Benadryl) 25 mg Q4H PRN PO ITCHING Last administered on 08:03; Admin Dose 25 MG; Start 11/02/16 at 12:00 Cephalexin (Keflex) 500 mg Q6 PO Last administered on 11/05/16 12:54; Admin Dose 500 MG; Start 11/04/16 at 07:00 Lisinopril (Zestril) 10 mg DAILY PO Last administered on 11/05/16 08:43; Admin Dose 10 MG; Start 11/04/16 at 13:30 Hydromorphone HCl (Dilaudid) 2 mg Q4 PRN IM SEVERE PAIN LEVEL 7-10 Last administered on 11/05/16 12:54; Admin Dose 2 MG; Start 11/04/16 at 17:00 Amlodipine Besylate (Norvasc) 10 mg DAILY PO ; Start 11/06/16 at 09:00; Status UNV Amlodipine Besylate (Norvasc) 5 mg ONCE ONCE PO ; Start 11/05/16 at 14:00; Stop 11/05/16 at 14:01; Status UNV ALEX RUFF MD Nov 05, 2016 14:03
[2016-11-05] MEDS: RIVAROXABAN 10 MG TABLET PO SCH (17:24)
[2016-11-05] MEDS: MAGNESIUM HYDROXIDE 30ML CUP PO SCH (20:14)
[2016-11-05 20:21] VITALS: BP 143/83; RESP 20
[2016-11-06] MEDS: CEPHALEXIN 500 MG CAP PO SCH ×4 (00:05→18:06)
[2016-11-06] MEDS: OXYCODONE/ACETAMINOPHEN (5/325) TAB PO PRN ×6 (00:06→22:10)
[2016-11-06] MEDS: HYDROmorphONE 2 MG/ML SYG IM PRN ×5 (01:40→20:05)
[2016-11-06 07:49] VITALS: BP 152/81; RESP 18
[2016-11-06] MEDS: SENNA/DOCUSATE NA (8.6MG/50MG) TAB PO SCH ×2 (08:40→20:08)
[2016-11-06] MEDS: LISINOPRIL 10 MG TAB PO SCH (08:41)
[2016-11-06] MEDS: AMLODIPINE 10 MG TAB PO SCH (08:41)
--- NOTE | 2016-11-06 13:42 | CONS ---
Date/Time of Note Date/Time of Note DATE: 11/06/16 TIME: 13:31 Assessment/Plan Assessment/Plan Chief Complaint/Hosp Course 1. he is 4 days post op a L ankle fusion .He is having less pain in his left ankle. He says that the pain medication is controlling his pain.I told him that the IM Dilaudid will need to be tapered . I discussed this with the patient . 2. HTN ,BP is lower today. I will increase Lisinopril to 20 mg a day. 3. his renal function is back to normal . 4. He is going to go to the [facility] today . He is cleared to go . [facility] will be unable to [facility] . I discussed this with the patient . Problems: Consultation Date/Type/Reason Admit Date/Time Nov 02, 2016 at 05:16 24 HR Interval Summary Free Text/Dictation He is doing better . His pain is controlled on his current medication . Constitutional: no complaints Exam/Review of Systems Vital Signs Vitals Vital Signs Date Time Temp Pulse Resp B/P Pulse Ox O2 Delivery O2 Flow Rate FiO2 11/06/16 07:49 97.9 69 18 152/81 96 11/05/16 07:30 Nasal Cannula 2.0 Intake and Output 11/05/16 11/05/16 11/06/16 15:00 23:00 07:00 Intake Total 1000 ml 800 ml Output Total 600 ml Balance 1000 ml 200 ml Exam He has a large cast on his L foot and ankle . Constitutional: alert, obese, oriented Psych: nl mood/affect, no complaints Respiratory: clear to auscultation, normal air movement Cardiovascular: regular rate and rhythm Gastrointestinal: soft Musculoskeletal: nl extremities to inspection Results Result Diagram: 11/04/16 0444 11/04/16 0444 Medications Medications Current Medications Senna/Docusate Sodium (Senokot-S) 1 tab BID PO Last administered on 11/06/16t 08:40; Admin Dose 1 TAB; Start 11/02/16 at 21:00 Magnesium Hydroxide (Milk Of Mag) 30 ml HS PO ; Start 11/04/16 at 21:00 Bisacodyl (Dulcolax Supp) 10 mg DAILY PRN [place] CONSTIPATION; Start 11/02/16 at 12: 00 Oxycodone/ Acetaminophen (Percocet (5/ 325)) 1 tab Q4H PRN PO PAIN; Start at 12:00 Oxycodone/ Acetaminophen (Percocet (5/ 325)) 2 tab Q4H PRN PO PAIN Last administered on 11/06/16 08:55; Admin Dose 2 TAB; Start 11/02/16 at 12:00 Morphine Sulfate (morphine) 5 mg Q4H PRN IV PAIN LEVEL 7-10 Last administered on 11/03/16 16:56; Admin Dose 5 MG; Start 11/02/16 at 12:00 Ondansetron HCl (Zofran Inj) 4 mg Q4H PRN IV NAUSEA AND/OR VOMITING; Start 11/02 at 12:00 Diphenhydramine HCl (Benadryl) 25 mg Q4H PRN PO ITCHING Last administered on 08:03; Admin Dose 25 MG; Start 11/02/16 at 12:00 Cephalexin (Keflex) 500 mg Q6 PO Last administered on 11/06/16 12:08; Admin Dose 500 MG; Start 11/04/16 at 07:00 Lisinopril (Zestril) 10 mg DAILY PO Last administered on 11/06/16 08:41; Admin Dose 10 MG; Start 11/04/16 at 13:30 Hydromorphone HCl (Dilaudid) 2 mg Q4 PRN IM SEVERE PAIN LEVEL 7-10 Last administered on 11/06/16 11:44; Admin Dose 2 MG; Start 11/04/16 at 17:00 Amlodipine Besylate (Norvasc) 10 mg DAILY PO Last administered on 11/06/16 08: 41; Admin Dose 10 MG; Start 11/06/16 at 09:00 Clonidine (Catapres) 0.1 mg Q6H PRN PO ELEVATED BLOOD PRESSURE; Start 11/05/16 at 14:00 ALEX RUFF MD Nov 06, 2016 13:41
[2016-11-06] MEDS: RIVAROXABAN 10 MG TABLET PO SCH (18:06)
--- NOTE | 2016-11-06 19:31 | PDOCDIS ---
Discharge Instructions CONDITION Patient Condition: Good HOME CARE INSTRUCTIONS: Diet Instructions: Reduced SodiumSpecial Diet: regularYour diet recommendation is: regular ACTIVITY: Activity Restrictions: Slowly Increase Activity Rest between Activity Avoid heavy lifting Do not Drive Do not operate Machinery Do not operate Power Tool Avoid Heavy Housework No Weight Bearing Activity Restrictions Comment: avoid getting operative leg/cast wet/moist at all times FOLLOW UP/APPOINTMENTS Appointments ALEX Cruz MD Nov 06, 2016 19:31
[2016-11-06 20:07] VITALS: BP 166/88
[2016-11-06] MEDS: MAGNESIUM HYDROXIDE 30ML CUP PO SCH ×2 (20:08→21:00)
[2016-11-07] VITALS: BP 144/76; PULSE 83; RESP 18
[2016-11-07] MEDS: HYDROmorphONE 2 MG/ML SYG IM PRN ×4 (00:09→14:50)
[2016-11-07] MEDS: CEPHALEXIN 500 MG CAP PO SCH ×3 (00:09→12:37)
[2016-11-07] MEDS: OXYCODONE/ACETAMINOPHEN (5/325) TAB PO PRN ×3 (02:10→12:37)
[2016-11-07] MEDS: SENNA/DOCUSATE NA (8.6MG/50MG) TAB PO SCH (08:43)
[2016-11-07] MEDS: AMLODIPINE 10 MG TAB PO SCH (08:43)
[2016-11-07] MEDS ORDERED: LISINOPRIL 10 MG TAB PO SCH (09:00)
[2016-11-07 15:00] VITALS: BP 132/72; PULSE 74
--- NOTE | 2016-11-07 20:34 | CONS ---
Date/Time of Note Date/Time of Note DATE: 11/07/16 TIME: 20:33 Assessment/Plan Assessment/Plan Additional Assessment/Plan 1. he is 5 days post op a L ankle fusion, off dilaudid pain meds 2. HTN, stable 3. stable for d/c to [facility] to snf for [facility]. Fontanez Consultation Date/Type/Reason Admit Date/Time Nov 02, 2016 at 05:16 Exam/Review of Systems Vital Signs Vitals Vital Signs Date Time Temp Pulse Resp B/P Pulse Ox O2 Delivery O2 Flow Rate FiO2 11/07/16 15:00 98.0 74 132/72 11/07/16 00:00 18 11/06/16 07:49 96 11/05/16 07:30 Nasal Cannula 2.0 Intake and Output 11/06/16 11/06/16 11/07/16 15:00 23:00 07:00 Intake Total 1800 ml 1000 ml Output Total 1200 ml Balance 1800 ml -200 ml Results Result Diagram: 11/04/16 0444 11/04/16 0444 SULAIMAN MG MD Nov 07, 2016 20:34
== END 2016-11-07 15:45 | DRG 493 ==
LOC: REC 05:16 → MS1 13:33
PROVIDERS: ADMIT Orthopaedic Surgery; ATTEND Orthopaedic Surgery
PROC: 0QBM0ZZ Excision of Left Tarsal, Open Approach (ICD-10-PCS; 2016-11-02)
PROC: 0SGG44Z Fusion of Left Ankle Joint with Internal Fixation Device, Percutaneous Endoscopic Approach (ICD-10-PCS; principal; 2016-11-02 07:30)
DX: M19.072 Primary osteoarthritis, left ankle and foot (principal); Z68.41 Body mass index [BMI] 40.0-44.9, adult; I10 Essential (primary) hypertension; M94.272 Chondromalacia, left ankle and joints of left foot; E11.9 Type 2 diabetes mellitus without complications; E66.01 Morbid (severe) obesity due to excess calories; G47.30 Sleep apnea, unspecified
CPT/HCPCS: 73610; 80053; 81003; 82570; 82962; 85025; 85610; 85730; 97162; 97530; C1713; J0330; J0690; J1170; J1200; J2250; J2270; J2370; J2710; J2795; J3010; J7030